=== PATIENT | male | born 1990 | race Caucasian/White ===

== ENCOUNTER 2016-11-01 22:48 | Emergency (ER) | payer MEDICARE | END 2016-11-02 00:16 | disposition home or self-care (01) | LOC: D.ER 22:48 | DX: S39.012A Strain of muscle, fascia and tendon of lower back, initial encounter (principal); W10.2XXA Fall (on)(from) incline, initial encounter; Y93.89 Activity, other specified; Y92.89 Other specified places as the place of occurrence of the external cause; F17.200 Nicotine dependence, unspecified, uncomplicated ==

== ENCOUNTER 2017-01-23 15:20 | Emergency (ER) | payer MEDICARE | END 2017-01-23 19:23 | disposition left against medical advice (07) | LOC: D.ER 15:20 | DX: R07.9 Chest pain, unspecified (principal) ==

== ENCOUNTER 2017-04-21 23:06 | Emergency (ER) | payer MEDICARE, OTHER | END 2017-04-22 01:10 | disposition home or self-care (01) | LOC: D.ER 23:06 | DX: K08.89 Other specified disorders of teeth and supporting structures (principal) ==

== ENCOUNTER 2017-05-04 23:19 | Emergency (ER) | payer MEDICARE | END 2017-05-05 00:26 | disposition home or self-care (01) | LOC: D.ER 23:19 | DX: K08.89 Other specified disorders of teeth and supporting structures (principal) ==

== ENCOUNTER 2017-05-13 10:07 | Emergency (ER) | payer MEDICARE | END 2017-05-13 11:50 | disposition home or self-care (01) | LOC: D.ER 10:07 | DX: K04.7 Periapical abscess without sinus (principal); K08.89 Other specified disorders of teeth and supporting structures; K02.9 Dental caries, unspecified; F17.200 Nicotine dependence, unspecified, uncomplicated ==

== ENCOUNTER 2017-07-02 21:52 | Emergency (ER) | payer MEDICARE | END 2017-07-03 01:39 | disposition home or self-care (01) | LOC: D.ER 21:52 | DX: S60.051A Contusion of right little finger without damage to nail, initial encounter (principal); W23.0XXA Caught, crushed, jammed, or pinched between moving objects, initial encounter; Y93.89 Activity, other specified; Y92.410 Unspecified street and highway as the place of occurrence of the external cause; F17.200 Nicotine dependence, unspecified, uncomplicated ==

== ENCOUNTER 2018-06-28 16:49 | Emergency (ER) | payer MEDICARE ==
[~2018-06-28] VITALS: Ht 175.3 cm; Wt 75.0 kg
[2018-06-28 16:55] VITALS: BP 125/72; Ht 175.3 cm; Wt 75.0 kg
[2018-06-28 17:50] LABS: BASOPHILS 0.3 % (0-2); HEMATOCRIT 37.2 % (42.0-54.0); IMMATURE GRANULOCYTES 0.2 % (0-5); LYMPHOCYTES 36.9 % (15-50); MCH 31.9 pg (26.0-34.0); MCHC 34.9 g/dL (31.0-37.0); MCV 91.2 fL (80.0-100.0); NEUTROPHILS 51.6 % (40-80); PLATELET COUNT 183 10x3/uL (130-400); RBC 4.08 10x6/uL (4.20-6.10); WBC 6.1 10x3/uL (4.8-10.8)
[2018-06-28 18:01] LABS: ALBUMIN 3.6 g/dL (3.4-5.0); ALKALINE PHOSPHATASE 46 U/L (46-116); ALT (SGPT) 22 U/L (10-68); CALC OSMOLALITY 280 mosm/kg (275-300); CALCIUM 8.7 mg/dL (8.5-10.1); CARBON DIOXIDE 22.4 mmol/L (21.0-32.0); CHLORIDE - SERUM 105 mmol/L (98-107); CREATININE - SERUM 1.2 mg/dL (0.6-1.3); GLUCOSE 92 mg/dL (74-106); POTASSIUM - SERUM 3.6 mmol/L (3.5-5.1); PROTEIN - SERUM 6.5 g/dL (6.4-8.2); SODIUM 141 mmol/L (136-145); UREA NITROGEN 13 mg/dL (7-18); eGFR NON AFRICAN AMERICAN 77 mL/min (90-120)
[2018-06-28 18:10] LABS: CKMB 1.7 U/L (0.0-3.6); CREATINE KINASE 137 UL (21-232)
[2018-06-28 18:16] LABS: TROPONIN-I < 0.017 ng/mL (0.000-0.060)
== END 2018-06-28 19:45 | disposition left against medical advice (07) ==
LOC: D.ER 16:49
PROVIDERS: Family Medicine
DX: R07.81 Pleurodynia (principal); F17.200 Nicotine dependence, unspecified, uncomplicated